=== PATIENT | male | born 1950 | race Two or more races ===

== ENCOUNTER 2019-03-14 11:35 | Inpatient (IN) | payer OTHER ==
[~2019-03-14] VITALS: Ht 165.1 cm; Wt 74.8 kg
[2019-03-23] MEDS ORDERED: GLIPIZIDE XL10 MG (10:11)
[2019-03-23] MEDS ORDERED: ATORVASTATIN CA10 MG (10:11)
[2019-03-23] MEDS ORDERED: FORTAMET1000 MG (10:11)
[2019-03-23] MEDS ORDERED: HORIZANT300 MG (10:12)
[2019-03-23] MEDS ORDERED: IRBESARTAN-HCT1 EAC1 (10:12)
== END 2019-04-01 19:12 | disposition home or self-care (01) | DRG 330 ==
LOC: O/R 03-29 05:20 → SURG 03-29 10:30
PROVIDERS: ADMIT Colon & Rectal Surgery
PROC: 07TB4ZZ Resection of Mesenteric Lymphatic, Percutaneous Endoscopic Approach (ICD-10-PCS; 2019-03-29)
PROC: 0D1B4Z4 Bypass Ileum to Cutaneous, Percutaneous Endoscopic Approach (ICD-10-PCS; 2019-03-29)
PROC: 4A12X4Z Monitoring of Cardiac Electrical Activity, External Approach (ICD-10-PCS; 2019-03-29)
PROC: 4A033R1 Measurement of Arterial Saturation, Peripheral, Percutaneous Approach (ICD-10-PCS; 2019-03-29)
PROC: 0DTN4ZZ Resection of Sigmoid Colon, Percutaneous Endoscopic Approach (ICD-10-PCS; principal; 2019-03-29 14:30)
PROC: 0T9B70Z Drainage of Bladder with Drainage Device, Via Natural or Artificial Opening (ICD-10-PCS; 2019-03-30)
DX: C18.7 Malignant neoplasm of sigmoid colon (principal); C20 Malignant neoplasm of rectum; Z99.11 Dependence on respirator [ventilator] status; J95.89 Other postprocedural complications and disorders of respiratory system, not elsewhere classified; J98.11 Atelectasis; R09.02 Hypoxemia; R33.8 Other retention of urine; I11.9 Hypertensive heart disease without heart failure; R59.0 Localized enlarged lymph nodes; G47.33 Obstructive sleep apnea (adult) (pediatric); E11.40 Type 2 diabetes mellitus with diabetic neuropathy, unspecified; Z79.4 Long term (current) use of insulin

== ENCOUNTER 2019-03-28 07:21 | Day surgery (SDC) | payer OTHER ==
[~2019-03-28 07:21] MED LIST: ATORVASTATIN CA10 MG; FORTAMET1000 MG; GLIPIZIDE XL10 MG; HORIZANT300 MG; IRBESARTAN-HCT1 EAC1
== END 2019-03-28 16:35 | disposition home or self-care (01) ==
LOC: AMB-ENDOS 07:21
DX: C19 Malignant neoplasm of rectosigmoid junction (principal); K92.1 Melena

== ENCOUNTER → 2019-06-22 | Outpatient (CLI) | payer OTHER | END | disposition home or self-care (01) | LOC: RX STUDY 09:23 | DX: C20 Malignant neoplasm of rectum (principal) ==

== ENCOUNTER 2019-07-07 08:00 | Inpatient (IN) | payer OTHER ==
[~2019-07-07] VITALS: Ht 154.9 cm; Wt 151.0 kg
[2019-07-07] MEDS ORDERED: JANUMET 50-1,01 EACH PO (10:21)
== END 2019-07-15 17:46 | disposition home or self-care (01) | DRG 330 ==
LOC: SURG 07-13 05:50 → O/R 07-13 05:50 → SURH 07-13 08:00 → O/R 07-13 08:00 → SURH 07-13 13:30 → SURG 07-13 16:58
PROVIDERS: ADMIT Colon & Rectal Surgery
PROC: 0DSB4ZZ Reposition Ileum, Percutaneous Endoscopic Approach (ICD-10-PCS; principal; 2019-07-13 13:30)
PROC: 4A09X1Z Measurement of Respiratory Capacity, External Approach (ICD-10-PCS; 2019-07-14)
DX: Z43.2 Encounter for attention to ileostomy (principal); J98.11 Atelectasis; E11.42 Type 2 diabetes mellitus with diabetic polyneuropathy; G47.33 Obstructive sleep apnea (adult) (pediatric); D64.9 Anemia, unspecified; Z85.048 Personal history of other malignant neoplasm of rectum, rectosigmoid junction, and anus; I11.9 Hypertensive heart disease without heart failure; E78.00 Pure hypercholesterolemia, unspecified; D69.6 Thrombocytopenia, unspecified

== ENCOUNTER 2020-08-10 09:11 | Day surgery (SDC) | payer OTHER ==
[~2020-08-10 09:11] MED LIST changes: +JANUMET 50-1,01 EACH PO
== END 2020-08-10 18:27 | disposition home or self-care (01) ==
LOC: AMB-ENDOS 09:11
PROVIDERS: ATTEND Colon & Rectal Surgery
DX: K62.89 Other specified diseases of anus and rectum (principal); K64.1 Second degree hemorrhoids; Z20.822 Contact with and (suspected) exposure to COVID-19